=== PATIENT | male | born 1955 | race Caucasian/White ===

== ENCOUNTER 2016-10-31 09:45 | Inpatient (IN) | payer BC ==
[~2016-10-31] VITALS: Ht 172.7 cm; Wt 88.0 kg
[~2016-10-31 09:45] MED LIST: AMLO10TA2 PO; BUPIVACAINE/PF-EPI 0.25% 1:200K ONE; CINN500C2 PO; CRAN500T2 PO; MULT-412 PO; PRAV40TA2 PO; SULF500T36 PO; THROMBIN 5,000 UNIT VIAL TP ONE
[2016-10-31] MEDS ORDERED: LACTATED RINGERS 1,000 ML IV SCH (11:03)
[2016-10-31 11:06] VITALS: BP 155/96
[2016-10-31] MEDS ORDERED: EPHEDRINE 50 MG/ML, 1ML ONE (12:43)
[2016-10-31] MEDS ORDERED: ONDANSETRON 2MG/ML, 2ML ONE (12:43)
[2016-10-31] MEDS ORDERED: CEFAZOLIN 1,000 MG ONE (12:43)
[2016-10-31] MEDS ORDERED: METOCLOPRAMIDE 5 MG/ML, 2ML ONE (12:43)
[2016-10-31] MEDS ORDERED: DEXAMETHASONE 4 MG/ML, 1ML ONE (12:43)
[2016-10-31] MEDS ORDERED: ROCURONIUM 10 MG/ML ONE (12:43)
[2016-10-31] MEDS ORDERED: PHENYLEPHRINE 10 MG/ML ONE (12:43)
[2016-10-31] MEDS ORDERED: NEOSTIGMINE 1 MG/ML, 10ML ONE (12:43)
[2016-10-31] MEDS ORDERED: PROPOFOL 10 MG/ML, 20ML ONE (12:43)
[2016-10-31] MEDS ORDERED: SUCCINYLCHOLINE 20 MG/ML, 10ML ONE (12:43)
[2016-10-31] MEDS ORDERED: GLYCOPYRROLATE 0.2MG/1ML ONE (12:43)
[2016-10-31] MEDS ORDERED: FENTANYL PF 250 MCG/5ML ONE (12:52)
[2016-10-31] MEDS ORDERED: KETAMINE 10 MG/ML, 20ML ONE (12:52)
[2016-10-31] MEDS ORDERED: HYDROmorphone 2 MG/ML, 1ML ONE ×2 (12:52→19:33)
[2016-10-31] MEDS ORDERED: OXYcodone 5 MG/5 ML ORAL.SOL UDC PO PRN (13:30)
[2016-10-31] MEDS ORDERED: hydrALAzine 20 MG/ML, 1ML IV PRN (13:30)
[2016-10-31] MEDS ORDERED: ACETAMINOPHEN 325 MG TABLET PO PRN (13:30)
[2016-10-31] MEDS ORDERED: LABETALOL 5MG/ML, 20ML IV PRN (13:30)
[2016-10-31] MEDS ORDERED: MIDAZOLAM 1 MG/ML, 2ML IV PRN (13:30)
[2016-10-31] MEDS ORDERED: MEPERIDINE/PF 25MG/0.5ML IVPush PRN (13:30)
[2016-10-31] MEDS ORDERED: HYDROmorphone 1 MG/ML, 1ML IV PRN (13:30)
[2016-10-31] MEDS ORDERED: ONDANSETRON 2MG/ML, 2ML IVPush PRN (13:30)
[2016-10-31] MEDS ORDERED: POTASSIUM CHLORIDE 40 MEQ in SODIUM CHLORIDE 0.9% 500 ML IV ONE (15:30)
[2016-10-31] MEDS ORDERED: BUPIVACAINE/PF 0.25% ONE (16:09)
[2016-10-31] MEDS ORDERED: BUPIVACAINE/PF 0.5% ONE (16:09)
[2016-10-31] MEDS ORDERED: ALBUMIN HUMAN 5% 500 ML ONE (16:09)
[2016-10-31] MEDS ORDERED: HYDROmorphone 1 MG/ML, 1ML ONE (17:56)
[2016-10-31] MEDS ORDERED: ACETAMINOPHEN 650 MG/20.3 ML UDC ONE (19:32)
[2016-10-31] MEDS ORDERED: OXYcodone 5 MG/5 ML ORAL.SOL UDC ONE (19:33)
[2016-10-31] MEDS ORDERED: MEPERIDINE/PF 25MG/0.5ML ONE (19:33)
[2016-10-31] MEDS ORDERED: FENTANYL PF 100 MCG/2ML ONE (19:33)
[2016-10-31] MEDS: FENTANYL PF 100 MCG/2ML IV PRN ×3 (19:39→20:40)
[2016-10-31] MEDS ORDERED: ONDANSETRON 2MG/ML, 2ML IV PRN (22:30)
[2016-10-31] MEDS ORDERED: OPIUM/BELLADONNA SUPP.RECT 16.2-30 MG PR PRN (22:30)
[2016-10-31] MEDS ORDERED: TEMAZEPAM 15 MG CAPSULE PO PRN (22:30)
[2016-10-31] MEDS: CEFAZOLIN PMX 1GM/50ML 50 ML IVPB SCH (22:50)
[2016-10-31] MEDS: D5%-0.45NACL+KCL 20MEQ 1,000 ML IV SCH (22:50)
[2016-11-01 01:25] VITALS: BP 106/71
[2016-11-01 05:47] LABS: BLOOD UREA NITROGEN 15 mg/dL (7-18)
[2016-11-01] MEDS: CEFAZOLIN PMX 1GM/50ML 50 ML IVPB SCH (05:59)
[2016-11-01 06:40] VITALS: BP 101/63
[2016-11-01] MEDS: AMLODIPINE 5 MG TABLET PO SCH (09:34)
[2016-11-01] MEDS: SULFASALAZINE 500 MG TABLET PO SCH ×2 (09:34→18:24)
[2016-11-01] MEDS: ENOXAPARIN 40 MG/0.4 ML SQ SCH (09:35)
[2016-11-01] MEDS: D5%-0.45NACL+KCL 20MEQ 1,000 ML IV SCH ×2 (09:36→20:00)
[2016-11-01] MEDS ORDERED: MORPHINE SULFATE 4 MG/ML, 1ML IVPush PRN (11:30)
[2016-11-01] MEDS: HYDROcodone/APAP 5/325 TABLET PO PRN ×3 (13:56→22:09)
[2016-11-01 14:07] VITALS: BP 108/69
[2016-11-01 19:04] VITALS: BP 109/68
[2016-11-01] MEDS: PRAVASTATIN 40 MG TABLET PO SCH (21:16)
[2016-11-01] MEDS: DOCUSATE 100 MG CAPSULE PO SCH (21:16)
[2016-11-02 01:39] VITALS: BP 97/64
[2016-11-02] MEDS: HYDROcodone/APAP 5/325 TABLET PO PRN ×6 (02:17→23:13)
[2016-11-02 05:08] LABS: BLOOD UREA NITROGEN 8 mg/dL (7-18)
[2016-11-02] MEDS: D5%-0.45NACL+KCL 20MEQ 1,000 ML IV SCH ×2 (05:09→16:05)
[2016-11-02 08:24] VITALS: BP 97/61
[2016-11-02] MEDS: ENOXAPARIN 40 MG/0.4 ML SQ SCH (08:25)
[2016-11-02] MEDS: AMLODIPINE 5 MG TABLET PO SCH (08:26)
[2016-11-02] MEDS: DOCUSATE 100 MG CAPSULE PO SCH ×2 (08:26→21:14)
[2016-11-02] MEDS: SULFASALAZINE 500 MG TABLET PO SCH ×2 (08:27→21:15)
[2016-11-02] MEDS ORDERED: HYDR-3240 PO (09:01)
[2016-11-02 14:35] VITALS: BP 148/87
[2016-11-02] MEDS ORDERED: BISACODYL 5 MG EC TABLET PO ONE (15:30)
[2016-11-02 20:29] VITALS: BP 149/92
[2016-11-02] MEDS: PRAVASTATIN 40 MG TABLET PO SCH (21:15)
[2016-11-03] MEDS: D5%-0.45NACL+KCL 20MEQ 1,000 ML IV SCH ×2 (00:59→08:51)
[2016-11-03 01:34] VITALS: BP 123/83
[2016-11-03] MEDS: HYDROcodone/APAP 5/325 TABLET PO PRN ×3 (02:47→11:29)
[2016-11-03 07:59] VITALS: BP 125/85
[2016-11-03] MEDS: DOCUSATE 100 MG CAPSULE PO SCH (08:25)
[2016-11-03] MEDS: ENOXAPARIN 40 MG/0.4 ML SQ SCH (08:25)
[2016-11-03] MEDS: SULFASALAZINE 500 MG TABLET PO SCH (08:26)
[2016-11-03] MEDS: AMLODIPINE 5 MG TABLET PO SCH (08:26)
[2016-11-03] MEDS ORDERED: ONDA4TAB7 PO (12:44)
[2016-11-03 13:40] VITALS: BP 133/80
== END 2016-11-03 14:00 | disposition home or self-care (01) | DRG 707 ==
LOC: ORIP 10:32 → EDSTATUS 13:00 → 4NOR 21:50
PROVIDERS: ADMIT Urology; ATTEND Urology
PROC: 8E0W4CZ Robotic Assisted Procedure of Trunk Region, Percutaneous Endoscopic Approach (ICD-10-PCS; 2016-10-31)
PROC: 8E0W4CZ Robotic Assisted Procedure of Trunk Region, Percutaneous Endoscopic Approach (ICD-10-PCS; 2016-10-31)
PROC: 0YUA4JZ Supplement Bilateral Inguinal Region with Synthetic Substitute, Percutaneous Endoscopic Approach (ICD-10-PCS; principal; 2016-10-31 13:00)
PROC: 0VT04ZZ Resection of Prostate, Percutaneous Endoscopic Approach (ICD-10-PCS; 2016-10-31 13:00)
DX: C61 Malignant neoplasm of prostate (principal); K51.90 Ulcerative colitis, unspecified, without complications; K40.20 Bilateral inguinal hernia, without obstruction or gangrene, not specified as recurrent; D64.9 Anemia, unspecified; Z82.49 Family history of ischemic heart disease and other diseases of the circulatory system
CPT/HCPCS: 36415; 80047; 80048; 85014; 85018; 85025; 86850; 86900; 86923; 88302; 88309; C1729; J0690; J1100; J1170; J1650; J2270; J2405; J2704; J2710; J3010; J3490; P9045; C1760; C1781; J0330; J2370; J2765; J3480; J7120

== ENCOUNTER → 2016-11-07 | Outpatient (CLI) | payer BC ==
[~2016-11-07] MED LIST changes: -BUPIVACAINE/PF-EPI 0.25% 1:200K ONE; +CYSTO CONRAY II 250 ML VIAL UR ONE; +HYDR-3240 PO; +ONDA4TAB7 PO; -THROMBIN 5,000 UNIT VIAL TP ONE
== END | disposition home or self-care (01) ==
LOC: RAD 14:11
PROVIDERS: ATTEND Urology
DX: C61 Malignant neoplasm of prostate (principal); R32 Unspecified urinary incontinence
CPT/HCPCS: 74430; Q9958

== ENCOUNTER → 2016-11-14 | Outpatient (CLI) | payer BC | END | disposition home or self-care (01) | LOC: RAD 13:18 | PROVIDERS: ATTEND Urology | DX: C61 Malignant neoplasm of prostate (principal) | CPT/HCPCS: 74430; Q9958 ==

== ENCOUNTER 2016-11-21 19:50 | Emergency (ER) | payer BC ==
[~2016-11-21] VITALS: Ht 170.2 cm; Wt 86.0 kg
[~2016-11-21 19:50] MED LIST changes: -CYSTO CONRAY II 250 ML VIAL UR ONE
[2016-11-21 21:44] LABS: ASPARTATE AMINO TRANSFERASE 13 U/L (15-37); BLOOD UREA NITROGEN 20 mg/dL (7-18)
[2016-11-21 22:30] VITALS: BP 144/90
[2016-11-21] MEDS ORDERED: CIPROFLOXACIN 500 MG TABLET ONE (23:27)
[2016-11-21] MEDS ORDERED: CIPROFLOXACIN 500 MG TABLET PO ONE (23:30)
== END 2016-11-21 23:47 | disposition home or self-care (01) ==
LOC: ED 20:54
DX: N30.01 Acute cystitis with hematuria (principal)
CPT/HCPCS: 36415; 51700; 76857; 80053; 81001; 85025; 87086; 99285

== ENCOUNTER → 2016-11-28 | Outpatient (CLI) | payer BC ==
[~2016-11-28] MED LIST changes: +CYSTO CONRAY II 250 ML VIAL UR ONE; +LIDOCAINE GEL 2%, 5ML ONE
== END | disposition home or self-care (01) ==
LOC: RAD 14:36
PROVIDERS: ATTEND Urology
DX: C61 Malignant neoplasm of prostate (principal)
CPT/HCPCS: 74430; Q9958